=== PATIENT | female | born 1930 | race Caucasian/White ===

== ENCOUNTER → 2016-10-22 | Outpatient (CLI) | payer MEDICARE, BC ==
--- NOTE | 2016-10-22 12:58 | MM ---
Reason for exam: follow-up at short interval from prior study. Last mammogram was performed 10 months ago. History: Patient is postmenopausal and has history of breast cancer at age 85. Family history of breast cancer in mother and breast cancer in aunt. Malignant US breast localization RT of the right breast, January 02, 2016. Malignant US biopsy breast VAD RT of the right breast, December 11, 2015. Radiation therapy of the right breast, 2016. Excisional biopsy of the left breast. Excisional biopsy of the right breast. Took estrogen for 1 year beginning at age 52. Took antineoplastic for 10 years beginning at age 85. Physical Findings: Nurse did not find any significant physical abnormalities on exam. MG 3D Diag Mammo W/Cad JANES Bilateral CC and MLO view(s) were taken. Prior study comparison: December 11, 2015, right breast MG diagnostic mammo RT wo CAD. November 01, 2015, right breast MG 3d work up w/cad RT. November 01, 2015, right breast US breast workup limited RT. October 21, 2014, bilateral MG screening mammo w CAD. There are scattered fibroglandular densities. No significant new findings when compared with previous films. These results were verbally communicated with the patient and result sheet given to the patient on 10/22/16. ASSESSMENT: Benign, BI-RAD 2 RECOMMENDATION: Follow-up diagnostic mammogram of both breasts in 1 year.
== END | disposition home or self-care (01) ==
LOC: RADMAMWWP 10:45
PROVIDERS: ATTEND Radiology Diagnostic Radiology
DX: C50.911 Malignant neoplasm of unspecified site of right female breast (principal)
CPT/HCPCS: G0204; G0279

== ENCOUNTER 2017-06-13 22:01 | Inpatient (IN) | payer MEDICARE, BC ==
--- NOTE | 2017-06-13 22:31 | ED ---
Fall HPI - General Chief Complaint: Fall Stated Complaint: Fall Time Seen by Provider: 06/13/17 22:17 Source: patient, family, RN notes reviewed Mode of arrival: wheelchair - History of Present Illness Initial Comments: This is an 86-year-old female who presents to the emergency department with chief complaint of fall injury. Patient states that she was in her kitchen making dinner at approximately 6 PM this evening. She was in front of the kitchen sink and turned to reach for her microwave when she lost her balance, falling onto her left side. Patient states that she laid there for "about a half a second" and then was able to roll and get up off the ground. She states that she called her son at about 9 PM and requested that he bring her to the emergency department. Patient complains of left hip pain. She states that she is able to ambulate but not well. Patient states that she did not hit her head or lose consciousness. She denies any other injury. Patient states that she is not currently in pain. She only experiences pain when she moves her left lower extremity. Denies fever, chills, chest pain, shortness of breath, abdominal pain, nausea or vomiting, constipation or diarrhea, dysuria or hematuria, numbness or tingling, headache or vision changes. - Related Data Home Medications Medication Instructions Recorded Confirmed Venlafaxine HCl ER [Effexor XR] 75 mg PO DAILY 11/14/13 01/02/16 cycloSPORINE [Restasis] 1 drop BOTH EYES BID 11/14/13 01/02/16 Areds Eye Vitamin 1 tab PO DAILY 12/26/15 12/26/15 Carvedilol [Coreg] 6.25 mg PO BID 12/26/15 01/02/16 Ergocalciferol [Vitamin D2] 50,000 unit PO DIRECTED 12/26/15 12/26/15 Preservision Eye Gtts 1 drop BOTH EYES DIRECTED 12/26/15 01/02/16 Previous Rx's Medication Instructions Recorded HYDROcodone/APAP 5-325MG [[place] 5] 1 - 2 each PO Q6HR PRN #20 tab 01/02/16 Allergies Allergy/AdvReac Type Severity Reaction Status Date / Time cephalexin monohydrate Allergy Unknown Rash/Hives Verified 06/13/17 23:26 [From Keflex] Penicillins Allergy Unknown Verified 06/13/17 23:26 Review of Systems ROS Statement: Those systems with pertinent positive or pertinent negative responses have been documented in the HPI. ROS Other: All systems not noted in ROS Statement are negative. Past Medical History Past Medical History: Hypertension Additional Past Medical History / Comment(s): SOB WITH ACTIVITY, HX SKIN CANCER , PT STATES NEW DIAGNOSIS BREAST CANCER. History of Any Multi-Drug Resistant Organisms: None Reported Past Surgical History: Adenoidectomy, Breast Surgery, Tonsillectomy Additional Past Surgical History / Comment(s): JANES BREAST LUMPS. Past Anesthesia/Blood Transfusion Reactions: No Reported Reaction Past Psychological History: Depression Smoking Status: Never smoker Past Alcohol Use History: None Reported Past Drug Use History: None Reported - Past Family History Mother Family Medical History: Cancer Additional Family Medical History / Comment(s): BREAST CANCER General Exam - General Exam Comments Initial Comments: General: Awake and alert, well-developed; in no apparent distress. Son is at bedside. HEENT: Head atraumatic, normocephalic. Pupils are equal, round and reactive to light. Extraocular movements intact. Oropharynx moist without erythema or exudate. Neck: Supple. Normal ROM. Cardiovascular: Regular rate and rhythm. No murmurs, rubs or gallops. Chest symmetrical. Respiratory: Lungs clear to auscultation bilaterally. No wheezes, rales or rhonchi. Normal respiratory effort with no use of accessory muscles. Musculoskeletal: Patient unable to flex at the hip or knee due to pain of the left hip. No internal rotation noted. Right lower extremity has normal active range of motion. Tenderness on palpation of posterior left pelvis. There is 2 + pitting edema bilateral lower extremities. Sensation is intact. Pedal pulses are 2+ equal and palpable bilaterally. Skin: Nicolaus, warm and dry without rashes or lesions. Neurological: Alert and oriented x3. CN II-XII grossly intact. Speech is fluent and answers are appropriate. No focal neuro deficits. Psychiatric: Normal mood and affect. No overt signs of depression or anxiety noted. Limitations: no limitations Course Vital Signs 06/13/17 22:05 Temperature 97.8 F Pulse Rate 72 Respiratory 20 Rate Blood Pressure 159/71 O2 Sat by Pulse 99 Oximetry Medical Decision Making - Medical Decision Making This is an 86-year-old female who presents to the emergency department with chief complaint of fall injury. Patient fell at approximately 6 PM this evening , landing on her left side. On presentation patient complained of left hip pain. CT of the hip revealed a nondisplaced subcapital fracture of the lateral aspect of the femoral head. Computed tomography scan of brain and C-spine revealed no acute abnormalities. I spoke with Tona, physician assistant district attorney for orthopedics who recommended patient to be admitted under Dr. Raghu Erickson. Patient will be evaluated tomorrow. Patient is in no acute distress at this time. Findings and plan for admission were discussed with patient and her son at bedside. They are in agreement and voices understanding. All questions were answered. - Radiology Data Radiology results: report reviewed X-ray pelvis AP view impression: No fracture seen. X-ray left femur impression: There is slightly irregular cortex of the lateral aspect of the femoral head. On the lateral view however femoral neck appears intact. There is no dislocation. I do not see a definite fracture. CT left hip impression: There is a minimal nondisplaced subcapital fracture of the lateral aspect of the femoral head. 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 The maximum dimension was 2.5 cm. Cerebral atrophy and chronic small vessel ischemia. No acute intracranial abnormality. Neurologic changes in the cervical spine with 7 mm C5 to 6 bony spinal stenosis. No fracture. Disposition Clinical Impression: Fall, Subcapital fracture of left femur Disposition: ADMITTED IP TO THIS [facility] Condition: Stable Referrals: None,Stated [Primary Care Provider] - 1-2 days Time of Disposition: 00:17
--- NOTE | 2017-06-13 23:08 | XR ---
EXAMINATION TYPE: XR femur LT DATE OF EXAM: 06/13/2017 COMPARISON: NONE HISTORY: Hip pain after a fall TECHNIQUE: 6 views FINDINGS: I see no displaced fracture. There is slight irregular cortex on the lateral aspect of the femoral head. Hip joint space is normal. Knee joint is intact. There is no sign of knee joint effusio n. IMPRESSION: There is slight irregular cortex on the lateral aspect of the femoral head. On the lateral view however femoral neck appears intact. There is no Dislocation. I do not see a defi nite fracture..
--- NOTE | 2017-06-13 23:09 | XR ---
EXAMINATION TYPE: XR pelvis AP view DATE OF EXAM: 06/13/2017 COMPARISON: NONE HISTORY: Hip pain TECHNIQUE: Single view FINDINGS: The pelvic ring is intact. Proximal femurs appear intact. Lateral femoral head and neck cor patricia is slightly irregular but the medial cortex appears entirely normal. Sacroiliac joints appear nor mal. There is mild spurring of the acetabula. Hip joint spaces are fairly normal. IMPRESSION: No fracture seen.
--- NOTE | 2017-06-13 23:23 | CT ---
EXAMINATION TYPE: CT brain cspine wo con DATE OF EXAM: 06/13/2017 COMPARISON: MR scan 09/12/2011 HISTORY: Prior brain 2012, no prior CSP, fall today CT DLP: head-1064.30 body-328.10 mGycm Automated exposure control for dose reduction was used. TECHNIQUE: CT scan of the head and cervical spine are performed without contrast. FINDINGS: There is a oval-shaped 3 x 2 cm calcified mass adjacent to the cerebral falx on the right side in the right parietal lobe. There is patchy hypodensity in the periventricular white matter. Th ere is no midline shift. There is no sign of intracranial hemorrhage. The calvarium is intact. There is diffuse cerebral cortical atrophy. There is some straightening of the cervical vertebra. There is moderate narrowing at the C5-6 disc sp dat with spurring of the endplates. Posterior elements are intact. I see no fracture. There is mild h ypertrophic multilevel facet arthropathy. The skull base is intact. There is some narrowing of the sp inal canal at C5-6 that measure 7 mm. 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 The maximum dimension was 2.5 cm. Cerebral atrophy and chronic small vessel ischemia. No acute intracranial abnormality. Spondylotic changes in the cervical spine with 7 mm C5-6 bony spinal stenosis. No fracture.
--- NOTE | 2017-06-13 23:27 | CT ---
EXAMINATION TYPE: CT hip LT wo con DATE OF EXAM: 06/13/2017 COMPARISON: NONE HISTORY: No prior CT left femur xrays done today, evaluate left hip CT DLP: 380.00 mGycm Automated exposure control for dose reduction was used. FINDINGS: There is slight cortical buckling of the cortex of the lateral aspect of the femoral head consistent with a minimal subcapital acute fracture of the femoral head. There is no dislocation. The acetabulum is intact. The medial femoral head cortex appears normal. There is minimal acetabular spurring. The remainder of the exam is unremarkable. IMPRESSION: THERE IS A MINIMAL NONDISPLACED SUBCAPITAL FRACTURE OF THE LATERAL ASPECT OF THE FEMORAL HEAD.
[2017-06-14] MEDS ORDERED: HYDROmorphone 0.5 MG/0.5 ML SYRINGE IVP STA
[2017-06-14] MEDS ORDERED: HYDROmorphone 1 MG/ML 1 ML SYRINGE IVP PRN (00:08)
[2017-06-14] MEDS ORDERED: HYDROmorphone 0.5 MG/0.5 ML SYRINGE IVP PRN ×2 (00:08→00:18)
[2017-06-14] MEDS ORDERED: ACETAMINOPHEN TAB 325 MG TAB PO PRN (00:08)
[2017-06-14] MEDS ORDERED: NALOXONE 0.4 MG/ML 1 ML VIAL IV PRN (00:08)
[2017-06-14 00:32] LABS: Basophils % (A) 0 %; Eosinophils % (A) 0 %; HCT 43.4 % (34.0-46.0); HGB 13.6 gm/dL (11.4-16.0); Lymphocytes # (A) 0.6 k/uL (1.0-4.8); Lymphocytes % (A) 4 %; MCH 30.5 pg (25.0-35.0); MCHC 31.4 g/dL (31.0-37.0); MCV 97.3 fL (80.0-100.0); Mean Platelet Volume 7.5; Monocytes # (A) 0.9 k/uL (0-1.0); Monocytes % (A) 7 %; Neutrophils % (A) 88 %; Platelet Count 347 k/uL (150-450); RBC 4.46 m/uL (3.80-5.40); RDW 13.9 % (11.5-15.5); WBC 13.6 k/uL (3.8-10.6)
[2017-06-14] MEDS: SODIUM CHLORIDE 0.9% 1,000 ML IV SCH ×2 (00:48→16:20)
[2017-06-14 00:49] LABS: ALT 45 U/L (9-52); AST 30 U/L (14-36); Albumin 4.2 g/dL (3.5-5.0); Alkaline Phosphatase 79 U/L (38-126); Anion Gap 11 mmol/L; Blood Urea Nitrogen 29 mg/dL (7-17); Calcium 9.8 mg/dL (8.4-10.2); Carbon Dioxide 24 mmol/L (22-30); Chloride 103 mmol/L (98-107); Glucose 118 mg/dL (74-99); Potassium 4.1 mmol/L (3.5-5.1); Sodium 138 mmol/L (137-145); Total Bilirubin 0.7 mg/dL (0.2-1.3); Total Protein 6.5 g/dL (6.3-8.2)
[2017-06-14] MEDS ORDERED: CARVEDILOL 6.25 MG TAB PO STA (00:55)
[2017-06-14 01:51] VITALS: BMI 21.0
--- NOTE | 2017-06-14 12:01 | MR ---
EXAMINATION TYPE: MR hip LT wo con DATE OF EXAM: 06/14/2017 11:50 AM COMPARISON: NONE HISTORY: Left hip pain TECHNIQUE: Multiplanar, multiecho imaging of the left hip is performed without IV contrast. FINDINGS: There is a 2.5 cm anterior bladder diverticulum. There is a small amount of free fluid with in the pelvis. The uterus and ovaries are not visualized. There is superior joint space loss present in both hips. There is a 1.5 cm area of decreased attenuat ion on the T1 data set in the lateral aspect of the left femoral head. This is not high in signal on T1 weighting. There is no significant joint effusion. There is no evidence of marrow edema. I do not see evidence of avascular necrosis. There is some fraying of the superior acetabular labrum anteriorl y. IMPRESSION: 1. LOW SIGNAL LESION IN THE LATERAL ASPECT OF THE LEFT FEMORAL HEAD MAY REPRESENT A FIBROTIC LESION. A CT SCAN OF THE LEFT HIP WOULD BE SUGGESTED. 2. SMALL AMOUNT OF FREE FLUID WITHIN THE PELVIS. 3. ANTERIOR BLADDER DIVERTICULUM. 4. DEGENERATIVE CHANGE OF BOTH HIPS.
--- NOTE | 2017-06-14 20:23 | NM ---
EXAMINATION TYPE: NM bone/joint limited DATE OF EXAM: 06/14/2017 COMPARISON: Radiograph of the pelvis obtained on June 13, 2017. HISTORY: Left hip pain after a fall 4-5 days ago. Patient breast cancer to 3 years ago. TECHNIQUE: After the intravenous administration of 23.7 mCi Tc 99m MDP. Images acquired 3 hours pos t injection. Multiple views of pelvis are submitted. There is no abnormal uptake within the visualized osseous structures to suggest acute process. Levoco nvex curvature of the lumbar spine is noted. No findings are identified which would suggest a fractur e of the left femur. IMPRESSION: No acute osseous abnormality.
[2017-06-15] MEDS ORDERED: LORazepam 2 MG/ML INJ ONE (03:20)
[2017-06-15] MEDS ORDERED: LORazepam 2 MG/ML INJ IV PRN (03:31)
[2017-06-15] MEDS: SODIUM CHLORIDE 0.9% 1,000 ML IV SCH ×2 (04:03→16:36)
--- NOTE | 2017-06-15 08:01 | P.HPOR ---
History of Present Illness H&P Date: 06/14/17 This is an 86-year-old female who is admitted for left hip pain. Patient was evaluated in the the emergency room on 06/13/2017 after a fall. Patient states she fell in her kitchen and was able to walk but this was difficult and painful. Patient states today she still has pain in the left hip with any movement of the left lower extremity. Patient states she has not been out of bed today. Patient denies head injury, loss of consciousness, radicular pain, numbness, weakness or tingling. Review of Systems See HPI. Past Medical History Past Medical History: Hypertension Additional Past Medical History / Comment(s): SOB WITH ACTIVITY, HX SKIN CANCER , PT STATES NEW DIAGNOSIS BREAST CANCER. History of Any Multi-Drug Resistant Organisms: None Reported Past Surgical History: Adenoidectomy, Breast Surgery, Tonsillectomy Additional Past Surgical History / Comment(s): JANES BREAST LUMPS. Past Anesthesia/Blood Transfusion Reactions: No Reported Reaction Past Psychological History: Depression Smoking Status: Never smoker Past Alcohol Use History: None Reported Past Drug Use History: None Reported - Past Family History Mother Family Medical History: Cancer Additional Family Medical History / Comment(s): BREAST CANCER Medications and Allergies Home Medications Medication Instructions Recorded Confirmed Type Venlafaxine HCl ER [Effexor XR] 75 mg PO DAILY 11/14/13 01/02/16 History cycloSPORINE [Restasis] 1 drop BOTH EYES BID 11/14/13 01/02/16 History Areds Eye Vitamin 1 tab PO DAILY 12/26/15 12/26/15 History Carvedilol [Coreg] 6.25 mg PO BID 12/26/15 01/02/16 History Ergocalciferol [Vitamin D2] 50,000 unit PO DIRECTED 12/26/15 12/26/15 History Preservision Eye Gtts 1 drop BOTH EYES DIRECTED 12/26/15 01/02/16 History HYDROcodone/APAP 5-325MG [[place] 5] 1 - 2 each PO Q6HR PRN #20 tab 01/02/16 Rx Allergies Allergy/AdvReac Type Severity Reaction Status Date / Time cephalexin monohydrate Allergy Unknown Rash/Hives Verified 06/13/17 23:26 [From Keflex] Penicillins Allergy Unknown Verified 06/13/17 23:26 Physical Examination On exam patient is alert and oriented 3. Patient is hard of hearing. Patient is in no acute distress. Skin is intact. There is no ecchymosis, swelling or erythema. There is tenderness to palpation over the left hip. Patient has pain in the left hip with log roll and flexion and extension of the left hip. Patient has limited range of motion of the left lower extremity due to pain. There is no deformity of the left lower extremity. There is no tenderness over the left knee, ankle or foot. Calf is soft and nontender. Neurovascular status and circulatory status are intact. There is no tenderness to palpation of the head, neck, bilateral upper extremities or right lower extremity. Results A CT of the left hip without contrast shows evidence for a minimal nondisplaced subcapital fracture of the lateral aspect of the femoral head. X-ray of the left femur no definite acute fracture dislocation. X-rays of the pelvis shows no acute fracture or dislocation. - Labs Labs: Abnormal Lab Results - Last 24 Hours (Table) 06/14/17 06/14/17 Range/Units 00:15 00:15 WBC 13.6 H (3.8-10.6) k/uL Neutrophils # 12.0 H (1.3-7.7) k/uL Lymphocytes # 0.6 L (1.0-4.8) k/uL BUN 29 H (7-17) mg/dL Glucose 118 H (74-99) mg/dL H & H 06/14/17 Range/Units 00:15 Hgb 13.6 (11.4-16.0) gm/dL Hct 43.4 (34.0-46.0) % Result Diagrams: 06/14/17 00:15 06/14/17 00:15 Assessment and Plan (1) Fall Current Visit: Yes Status: Acute Code(s): W19.XXXA - UNSPECIFIED FALL, INITIAL ENCOUNTER SNOMED Code(s): 3070337 (2) Left hip pain Current Visit: Yes Status: Acute Code(s): M25.552 - PAIN IN LEFT HIP SNOMED Code(s): 79779079 Plan: #1. MRI of the left hip is ordered. #2. Patient is to be nonweightbearing to the left lower extremity. #3. Continue pain control. #4. No surgical intervention planned at this time. Further recommendations following MRI results.
--- NOTE | 2017-06-15 08:13 | P.PN ---
Subjective Progress Note Date: 06/15/17 This is an 86-year-old female admitted for left hip pain after fall. Patient has a history of dementia and is combative and upset this morning. Patient states her left hip does not hurt. Patient denies any new complaints today. Objective - Vital Signs Vital signs: Vital Signs Temp 98.0 F 06/14/17 23:00 Pulse 62 06/14/17 23:00 Resp 16 06/14/17 23:00 BP 121/82 06/14/17 23:00 Pulse Ox 94 L 06/14/17 23:00 Intake & Output 06/14/17 06/15/17 06/15/17 18:59 06:59 18:59 Intake Total 1470 600 Balance 1470 600 Intake: Intake, IV Titration 750 600 Amount Sodium Chloride 0.9% 1, 750 600 000 ml @ 75 mls/hr IV . [id number] CHRISTOPHER Rx#:[id number] Oral 720 Other: # Voids 2 3 - Exam On exam patient is alert and in no acute distress. Patient is laying on the left side without any pain. Calf is soft and nontender to palpation. Neurovascular status and circulatory status are intact today. - Labs CBC & Chem 7: 06/14/17 00:15 06/14/17 00:15 Assessment and Plan (1) Fall Current Visit: Yes Status: Acute Code(s): W19.XXXA - UNSPECIFIED FALL, INITIAL ENCOUNTER SNOMED Code(s): 0020172 (2) Left hip pain Current Visit: Yes Status: Acute Code(s): M25.552 - PAIN IN LEFT HIP SNOMED Code(s): 97929186 (3) Contusion of left hip Current Visit: Yes Status: Acute Code(s): S70.02XA - CONTUSION OF LEFT HIP, INITIAL ENCOUNTER SNOMED Code(s): 20434795 Plan: #1. A bone scan is ordered of the left hip for further evaluation and is negative for any acute osseous abnormality, #2. Patient is to be weightbearing as tolerated to the right lower extremity with physical therapy. #3. Continue pain control. #4. No surgical intervention planned at this time.
[2017-06-15] MEDS: ENOXAPARIN 40 MG/0.4 ML SYRINGE SQ SCH ×2 (09:44→11:09)
[2017-06-15] MEDS ORDERED: DOXYCYCLINE 50 MG CAP PO SCH (12:00)
[2017-06-15] MEDS ORDERED: DOXYCYCLINE 100 MG CAP PO SCH (12:55)
[2017-06-15] MEDS: DOXYCYCLINE 100 MG PO SCH ×2 (13:02→20:49)
[2017-06-15] MEDS: SILVER SULFADIAZINE 1% TOPICAL SCH ×2 (13:10→20:49)
[2017-06-15 14:48] LABS: Basophils % (A) 0 %; Eosinophils % (A) 0 %; HCT 39.4 % (34.0-46.0); HGB 12.4 gm/dL (11.4-16.0); Lymphocytes # (A) 0.5 k/uL (1.0-4.8); Lymphocytes % (A) 6 %; MCH 30.7 pg (25.0-35.0); MCHC 31.4 g/dL (31.0-37.0); MCV 97.8 fL (80.0-100.0); Mean Platelet Volume 7.7; Monocytes # (A) 0.6 k/uL (0-1.0); Monocytes % (A) 7 %; Neutrophils # (A) 8.3 k/uL (1.3-7.7); Neutrophils % (A) 86 %; Platelet Count 270 k/uL (150-450); RBC 4.03 m/uL (3.80-5.40); RDW 13.8 % (11.5-15.5); WBC 9.6 k/uL (3.8-10.6)
[2017-06-15 15:04] LABS: Anion Gap 8 mmol/L; Blood Urea Nitrogen 23 mg/dL (7-17); Calcium 8.7 mg/dL (8.4-10.2); Carbon Dioxide 24 mmol/L (22-30); Chloride 108 mmol/L (98-107); Glucose 126 mg/dL (74-99); Sodium 140 mmol/L (137-145)
[2017-06-16] MEDS: SODIUM CHLORIDE 0.9% 1,000 ML IV SCH ×2 (09:03→22:46)
[2017-06-16] MEDS: ENOXAPARIN 40 MG/0.4 ML SYRINGE SQ SCH (09:11)
[2017-06-16] MEDS: DOXYCYCLINE 100 MG PO SCH ×2 (09:11→19:36)
[2017-06-16] MEDS: SILVER SULFADIAZINE 1% TOPICAL SCH ×2 (10:17→19:37)
--- NOTE | 2017-06-16 10:34 | P.PN ---
Subjective Progress Note Date: 06/16/17 This is an 86-year-old female admitted for left hip pain after fall. Patient has a history of dementia and resting comfortably this morning. Patient denies any new complaints today. Objective - Vital Signs Vital signs: Vital Signs Temp 97.7 F 06/15/17 15:00 Pulse 74 06/16/17 07:00 Resp 16 06/16/17 07:00 BP 136/80 06/16/17 07:00 Pulse Ox 98 06/16/17 07:00 Intake & Output 06/15/17 06/16/17 06/16/17 18:59 06:59 18:59 Intake Total 1080 240 Balance 1080 240 Intake: Oral 1080 240 Other: Voiding Method Incontinent Toilet # Voids 1 - Exam On exam patient is resting comfortably in bed and in no acute distress. There is no tenderness to palpation over the left hip. Calf is soft and nontender to palpation. Neurovascular status and circulatory status are intact. - Labs CBC & Chem 7: 06/15/17 14:32 06/15/17 14:32 Labs: Abnormal Lab Results - Last 24 Hours (Table) 06/15/17 06/15/17 Range/Units 14:32 14:32 Neutrophils # 8.3 H (1.3-7.7) k/uL Lymphocytes # 0.5 L (1.0-4.8) k/uL Chloride 108 H (98-107) mmol/L BUN 23 H (7-17) mg/dL Glucose 126 H (74-99) mg/dL Assessment and Plan (1) Fall Current Visit: Yes Status: Acute Code(s): W19.XXXA - UNSPECIFIED FALL, INITIAL ENCOUNTER SNOMED Code(s): 3972627 (2) Left hip pain Current Visit: Yes Status: Acute Code(s): M25.552 - PAIN IN LEFT HIP SNOMED Code(s): 34755378 (3) Contusion of left hip Current Visit: Yes Status: Acute Code(s): S70.02XA - CONTUSION OF LEFT HIP, INITIAL ENCOUNTER SNOMED Code(s): 68364790 Plan: #1. A bone scan is negative for left hip fracture. #2. Patient is to be weight bearing as tolerated to the right lower extremity with physical therapy. #3. Continue pain control and DVT prophylaxis with Lovenox. #4. Appreciate input from medicine. #5. Patient may need discharge to a rehab facility. Case management is consulted.
[2017-06-16] MEDS ORDERED: KETOROLAC 30 MG/ML 1 ML VIAL IVP PRN (10:40)
[2017-06-16] MEDS ORDERED: DOXYCYCLINE MONOHYDRATE 100 MG PO SCH (10:45)
--- NOTE | 2017-06-16 11:07 | P.CONS ---
History of Present Illness - Reason for Consult Medical clearance for discharge, altered mental status - History of Present Illness Patient is a very pleasant 86-year-old female possibility of either vascular or senile dementia admitted for the possibility of left hip fracture to arthritic serviceman's was consulted regarding her confusion. Patient is presently alert oriented times close to 2-3 but patient get frequent agitation episodes. Patient was evaluated by arthritic surgery and was admitted to orthopedic surgery to rule out fraction of the left hip there is no clear-cut evidence of left hip fracture because of which patient underwent bone scan which did not show any fracture either although patient is quite weak and had a mechanical fall because of which will need to be placed in subacute rehabilitation and case management and social work is working on this. Patient was on Dilaudid and Ativan await the made her confusion worse secondary to toxic encephalopathy these will be disc in your patient will be started on ketorolac and Pepcid if patient is being discharged he can use etodolac and Tylenol for pain along with Pepcid for GI prophylaxis. DVT prophylaxis as per primary service. Review of Systems REVIEW OF SYSTEMS: CONSTITUTIONAL: No fever, no malaise, no fatigue. HEENT: No recent visual problems or hearing problems. Denied any sore throat. CARDIOVASCULAR: No chest pain, orthopnea, PND, no palpitations, no syncope. PULMONARY: No shortness of breath, no cough, no hemoptysis. GASTROINTESTINAL: No diarrhea, no nausea, no vomiting, no abdominal pain. Normoactive bowel sounds. NEUROLOGICAL: No headaches, no weakness, no numbness. HEMATOLOGICAL: Denies any bleeding or petechiae. GENITOURINARY: Denies any burning micturition, frequency, or urgency. MUSCULOSKELETAL/RHEUMATOLOGICAL: He pain as mentioned above ENDOCRINE: Denies any polyuria or polydipsia. The rest of the 14-point review of systems is negative. Past Medical History Past Medical History: Hypertension Additional Past Medical History / Comment(s): SOB WITH ACTIVITY, HX SKIN CANCER , PT STATES NEW DIAGNOSIS BREAST CANCER. History of Any Multi-Drug Resistant Organisms: None Reported Past Surgical History: Adenoidectomy, Breast Surgery, Tonsillectomy Additional Past Surgical History / Comment(s): JANES BREAST LUMPS. Past Anesthesia/Blood Transfusion Reactions: No Reported Reaction Past Psychological History: Depression Smoking Status: Never smoker Past Alcohol Use History: None Reported Past Drug Use History: None Reported - Past Family History Mother Family Medical History: Cancer Additional Family Medical History / Comment(s): BREAST CANCER Medications and Allergies Home Medications Medication Instructions Recorded Confirmed Type Venlafaxine HCl ER [Effexor XR] 75 mg PO DAILY 11/14/13 06/14/17 History cycloSPORINE [Restasis] 1 drop BOTH EYES BID 11/14/13 06/14/17 History Carvedilol [Coreg] 6.25 mg PO BID 12/26/15 06/14/17 History Anastrozole [Arimidex] 1 mg PO DAILY 06/14/17 06/14/17 History Doxycycline Monohydrate [Monodox] 100 mg PO Q12H 06/14/17 06/14/17 History SILVER sulfADIAZINE CREAM 1 applic TOPICAL BID 06/14/17 06/14/17 History [Silvadene Cream] Acetaminophen [Acetaminophen ER] 650 mg PO Q4HR #2 tablet.er 06/16/17 Rx Etodolac [Lodine] 200 mg PO BID #20 capsule 06/16/17 Rx Famotidine [Pepcid] 20 mg PO BID #0 tab 06/16/17 Rx Allergies Allergy/AdvReac Type Severity Reaction Status Date / Time cephalexin monohydrate Allergy Unknown Rash/Hives Verified 06/13/17 23:26 [From Keflex] Penicillins Allergy Unknown Verified 06/13/17 23:26 Physical Exam Vitals: Vital Signs Temp Pulse Resp BP Pulse Ox 06/16/17 09:13 98.4 F 06/16/17 07:00 74 16 136/80 98 06/16/17 03:11 83 16 147/72 94 L 06/15/17 20:00 16 06/15/17 15:00 97.7 F 93 16 176/73 99 Intake and Output 06/15/17 06/16/17 06/16/17 22:59 06:59 14:59 Intake Total 240 400 Balance 240 400 Intake: Oral 240 400 Other: Voiding Method Toilet Toilet # Voids 1 1 PHYSICAL EXAMINATION: GENERAL: The patient is alert and oriented x3, not in any acute distress. Well developed, well nourished. HEENT: Pupils are round and equally reacting to light. EOMI. No scleral icterus. No conjunctival pallor. Normocephalic, atraumatic. No pharyngeal erythema. No thyromegaly. CARDIOVASCULAR: S1 and S2 present. No murmurs, rubs, or gallops. PULMONARY: Chest is clear to auscultation, no wheezing or crackles. ABDOMEN: Soft, nontender, nondistended, normoactive bowel sounds. No palpable organomegaly. MUSCULOSKELETAL: No joint swelling or deformity. EXTREMITIES: Deferred to orthopedic surgery NEUROLOGICAL: Gross neurological examination did not reveal any focal deficits. SKIN: No rashes. Results CBC & Chem 7: 06/15/17 14:32 06/15/17 14:32 Labs: Abnormal Lab Results - Last 24 Hours (Table) 06/15/17 06/15/17 Range/Units 14:32 14:32 Neutrophils # 8.3 H (1.3-7.7) k/uL Lymphocytes # 0.5 L (1.0-4.8) k/uL Chloride 108 H (98-107) mmol/L BUN 23 H (7-17) mg/dL Glucose 126 H (74-99) mg/dL Assessment and Plan Plan: -Altered mental status:: Secondary to toxic encephalopathy from medications which will be discontinued Ativan and hydromorphone will be discontinued will instead we will use nonsteroidal anti-inflammatories for pain patient kidney function is okay. -Patient has bilateral breast lumps in the past because of which patient is anastrozole which can be continued. -Hypertension -Generalized deconditioning, mechanical fall and hip pain management as per primary service patient will be discharged to subacute rehabilitation Patient can be discharged from medical perspective and as per it's appropriate from orthopedic perspective
[2017-06-16] MEDS: cycloSPORINE 0.05% OPHTH 0.4 ML DROPERETTE BOTH EYES SCH (19:36)
[2017-06-16] MEDS: CARVEDILOL 6.25 MG TAB PO SCH (19:37)
[2017-06-16] MEDS ORDERED: FAMOTIDINE 20 MG TAB PO SCH (21:00)
[2017-06-17] MEDS ORDERED: FAMOTIDINE 20 MG TAB PO SCH (09:00)
[2017-06-17] MEDS ORDERED: ANASTROZOLE 1 MG TAB PO SCH (09:00)
[2017-06-17] MEDS ORDERED: VENLAFAXINE HCL ER 75 MG CAP PO SCH (09:00)
[2017-06-17] MEDS: CARVEDILOL 6.25 MG TAB PO SCH (09:29)
[2017-06-17] MEDS: DOXYCYCLINE 100 MG PO SCH (09:32)
[2017-06-17] MEDS: cycloSPORINE 0.05% OPHTH 0.4 ML DROPERETTE BOTH EYES SCH (09:33)
[2017-06-17] MEDS: ENOXAPARIN 40 MG/0.4 ML SYRINGE SQ SCH (09:33)
[2017-06-17] MEDS: SILVER SULFADIAZINE 1% TOPICAL SCH ×2 (09:38→10:25)
[2017-06-17] MEDS: SODIUM CHLORIDE 0.9% 1,000 ML IV SCH (10:25)
--- NOTE | 2017-06-17 14:35 | XR ---
EXAMINATION TYPE: XR chest 1V portable DATE OF EXAM: 06/17/2017 COMPARISON: NONE HISTORY: Shortness of breath TECHNIQUE: Frontal and lateral views of the chest are obtained. FINDINGS: Scattered senescent parenchymal changes noted. Hyperinflation compatible with COPD. No evidence for infiltrate. No evidence for atelectasis. Heart size is stable. Mediastinal structures are stable and grossly unremarkable. No evidence for hilar prominence. Degenerative changes dorsal spine. IMPRESSION: 1. No evidence for acute pulmonary disease.
[2017-06-17 14:55] VITALS: BP 142/84; PULSE 94; RESP 15; TEMP 98
--- NOTE | 2017-06-17 15:36 | P.DS ---
Providers Date of admission: 06/14/17 00:17 Expected date of discharge: 06/17/17 Attending physician: Raghu Erickson Consults: 06/17/17 12:19 Consult Physician Routine Consulting Provider: Rachna South Consult Reason/Comments: medical management Do you want consulting provider notified?: Yes Primary care physician: Stated None - Discharge Diagnosis(es) (1) Fall Current Visit: Yes Status: Acute (2) Left hip pain Current Visit: Yes Status: Acute (3) Contusion of left hip Current Visit: Yes Status: Acute Hospital Course: This is a 86-year-old female who sustained a contusion of the left hip after a fall. The patient presents for evaluation. The patient was admitted after CT scan showed evidence for possible fracture of the left hip. A bone scan of the left hip was done and was negative for any fracture of the left hip. Patient has been up and walking with physical therapy. Patient has a history of dementia. Labs and vital signs are stable on day of discharge. On day of discharge patient has no tenderness to palpation over the left hip. Patient has full range of motion of the left lower extremity without pain or difficulty. There is no swelling, erythema or ecchymosis. Patient has full foot and ankle motion without difficulty or pain. Neurovascular status to the left lower extremity is intact. Patient is discharged to rehab in good condition. Please see med rec for accurate list of home medications. Patient Condition at Discharge: Stable Plan - Discharge Summary New Discharge Prescriptions: New Acetaminophen [Acetaminophen ER] 650 mg PO Q4HR #2 tablet.er Etodolac [Lodine] 200 mg PO BID #20 capsule Famotidine [Pepcid] 20 mg PO BID #0 tab Continue Venlafaxine HCl ER [Effexor XR] 75 mg PO DAILY cycloSPORINE [Restasis] 1 drop BOTH EYES BID Carvedilol [Coreg] 6.25 mg PO BID SILVER sulfADIAZINE CREAM [Silvadene Cream] 1 applic TOPICAL BID Anastrozole [Arimidex] 1 mg PO DAILY Doxycycline Monohydrate [Monodox] 100 mg PO Q12H Discharge Medication List Venlafaxine HCl ER [Effexor XR] 75 mg PO DAILY 11/14/13 [History] cycloSPORINE [Restasis] 1 drop BOTH EYES BID 11/14/13 [History] Carvedilol [Coreg] 6.25 mg PO BID 12/26/15 [History] Anastrozole [Arimidex] 1 mg PO DAILY 06/14/17 [History] Doxycycline Monohydrate [Monodox] 100 mg PO Q12H 06/14/17 [History] SILVER sulfADIAZINE CREAM [Silvadene Cream] 1 applic TOPICAL BID 06/14/17 [ History] Acetaminophen [Acetaminophen ER] 650 mg PO Q4HR #2 tablet.er 06/16/17 [Rx] Etodolac [Lodine] 200 mg PO BID #20 capsule 06/16/17 [Rx] Famotidine [Pepcid] 20 mg PO BID #0 tab 06/16/17 [Rx] Follow up Appointment(s)/Referral(s): Claude Ordonez MD [STAFF PHYSICIAN] - 3 Days (while at [facility]) Trav on the [place], [NON-STAFF] - As Needed Raghu Erickson DO [Doctor of Osteopathic Medicine] - As Needed Activity/Diet/Wound Care/Special Instructions: Weightbearing as tolerated to the left lower extremity. Rest and ice the left lower extremity as needed. Patient may follow-up with [facility] on an as-needed basis. Any questions or concerns, Discharge Disposition: TRANSFER TO SNF/ECF
== END 2017-06-17 16:42 | DRG 604 ==
LOC: EC 22:01 → 3SUR 06-14 00:17
PROVIDERS: ADMIT Orthopaedic Surgery; ATTEND Orthopaedic Surgery
DX: S70.02XA Contusion of left hip, initial encounter (principal); G92 Toxic encephalopathy; F03.90 Unspecified dementia, unspecified severity, without behavioral disturbance, psychotic disturbance, mood disturbance, and anxiety; F32.9 Major depressive disorder, single episode, unspecified; T40.2X5A Adverse effect of other opioids, initial encounter; T42.4X5A Adverse effect of benzodiazepines, initial encounter; I10 Essential (primary) hypertension; Z79.811 Long term (current) use of aromatase inhibitors; Z79.899 Other long term (current) drug therapy; Z85.3 Personal history of malignant neoplasm of breast; Z88.1 Allergy status to other antibiotic agents; Z88.0 Allergy status to penicillin; Z85.828 Personal history of other malignant neoplasm of skin; W01.0XXA Fall on same level from slipping, tripping and stumbling without subsequent striking against object, initial encounter; Y92.000 Kitchen of unspecified non-institutional (private) residence as the place of occurrence of the external cause
CPT/HCPCS: 36415; 70450; 71045; 72125; 72170; 78300; 80048; 80053; 85025; 96374; 99285

== ENCOUNTER → 2017-10-30 | Outpatient (CLI) | payer MEDICARE, BC ==
--- NOTE | 2017-10-30 15:10 | MM ---
Reason for exam: additional evaluation requested from prior study. Last mammogram was performed 1 year ago. History: Patient is postmenopausal and has history of breast cancer at age 85. Family history of breast cancer in mother and breast cancer in aunt. Malignant US breast localization RT of the right breast, January 02, 2016. Malignant US biopsy breast VAD RT of the right breast, December 11, 2015. Radiation therapy of the right breast, 2016. Excisional biopsy of the left breast. Excisional biopsy of the right breast. Took estrogen for 1 year beginning at age 52. Took antineoplastic for 10 years beginning at age 85. Physical Findings: Nurse did not find any significant physical abnormalities on exam. MG 3D Diag Mammo W/Cad JANES Bilateral CC and MLO view(s) were taken. Prior study comparison: October 22, 2016, bilateral MG 3d diag mammo w/cad JANES. December 11, 2015, right breast MG diagnostic mammo RT wo CAD. The breast tissue is heterogeneously dense. This may lower the sensitivity of mammography. No suspicious abnormality. Post therapy change on the right breast. No significant new findings when compared with previous films. These results were verbally communicated with the patient and result sheet given to the patient on 10/30/17. ASSESSMENT: Benign, BI-RAD 2 RECOMMENDATION: Follow-up diagnostic mammogram of both breasts in 1 year.
== END | disposition home or self-care (01) ==
LOC: RADMAMWWP 14:01
PROVIDERS: ATTEND Radiology Diagnostic Radiology
DX: Z12.31 Encounter for screening mammogram for malignant neoplasm of breast (principal); Z85.3 Personal history of malignant neoplasm of breast
CPT/HCPCS: 77066; G0279; 77062

== ENCOUNTER 2017-12-07 13:25 | Emergency (ER) | payer MEDICARE, BC ==
[2017-12-07 13:42] VITALS: RESP 18
--- NOTE | 2017-12-07 14:11 | ED ---
General Adult HPI - General Chief complaint: Arrhythmia/Palpitations Stated complaint: Palpatations Time Seen by Provider: 12/07/17 13:30 Source: patient, family, RN notes reviewed Mode of arrival: wheelchair Limitations: no limitations - History of Present Illness Initial comments: This is an 87-year-old female presents emergency department stating she was having palpitations in her heart today. Patient states since she's been emergency department she has not had any. Patient states she doesn't think she was short of breath when she was having the palpitations. Patient denies having any chest pain. Patient denies any history of similar symptoms. Patient denies any recent fever chills or cough. Patient denies lightheadedness or dizziness. Patient denies any near syncopal episode. Patient denies any abdominal pain. Patient denies any nausea vomiting diarrhea. Patient states the symptoms have been coming and going all week but today with there were little more significant. - Related Data Home Medications Medication Instructions Recorded Confirmed Venlafaxine HCl ER [Effexor XR] 75 mg PO DAILY 11/14/13 12/07/17 cycloSPORINE [Restasis] 1 drop BOTH EYES BID 11/14/13 12/07/17 Carvedilol [Coreg] 6.25 mg PO BID 12/26/15 12/07/17 Anastrozole [Arimidex] 1 mg PO DAILY 06/14/17 12/07/17 Allergies Allergy/AdvReac Type Severity Reaction Status Date / Time cephalexin monohydrate Allergy Unknown Rash/Hives Verified 12/07/17 14:22 [From Keflex] Penicillins Allergy Unknown Verified 12/07/17 14:22 Review of Systems ROS Statement: Those systems with pertinent positive or pertinent negative responses have been documented in the HPI. ROS Other: All systems not noted in ROS Statement are negative. Past Medical History Past Medical History: Hypertension Additional Past Medical History / Comment(s): SOB WITH ACTIVITY, HX SKIN CANCER , PT STATES NEW DIAGNOSIS BREAST CANCER. History of Any Multi-Drug Resistant Organisms: None Reported Past Surgical History: Adenoidectomy, Breast Surgery, Tonsillectomy Additional Past Surgical History / Comment(s): JANES BREAST LUMPS. Past Anesthesia/Blood Transfusion Reactions: No Reported Reaction Past Psychological History: Depression Smoking Status: Never smoker Past Alcohol Use History: None Reported Past Drug Use History: None Reported - Past Family History Mother Family Medical History: Cancer Additional Family Medical History / Comment(s): BREAST CANCER General Exam - General Exam Comments Initial Comments: GENERAL: Patient is well-developed and well-nourished. Patient is nontoxic and well- hydrated and is in no acute distress. ENT: Neck is soft and supple. No significant lymphadenopathy is noted. Oropharynx is clear. Moist mucous membranes. Neck has full range of motion without eliciting any pain. EYES: The sclera were anicteric and conjunctiva were pink and moist. Extraocular movements were intact and pupils were equal round and reactive to light. Eyelids were unremarkable. PULMONARY: Unlabored respirations. Good breath sounds bilaterally. No audible rales rhonchi or wheezing was noted. CARDIOVASCULAR: There is a regular rate and rhythm without any murmurs gallops or rubs. ABDOMEN: Soft and nontender with normal bowel sounds. No palpable organomegaly was noted. There is no palpable pulsatile mass. SKIN: Skin is clear with no lesions or rashes and otherwise unremarkable. NEUROLOGIC: Patient is alert and oriented x3. Cranial nerves II through XII are grossly intact. Motor and sensory are also intact. Normal speech, volume and content. Symmetrical smile. MUSCULOSKELETAL: Normal extremities with adequate strength and full range of motion. No lower extremity swelling or edema. No calf tenderness. LYMPHATICS: No significant lymphadenopathy is noted PSYCHIATRIC: Normal psychiatric evaluation. Normal interpersonal interactions appears functionally intact in deals appropriately with others. No signs of depression. No signs of anxiety. 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 Patient's chest x-ray showed no acute abnormality. Patient had no palpitations while in the emergency department. Patient had no symptoms at all and wanted to go home once all the lab work was back. Patient states she'll follow-up with Dr. Llamas tomorrow - Lab Data Result diagrams: 12/07/17 13:48 12/07/17 13:48 Lab Results 07/01/1712/07/17 12/07/17 Range/Units 13:48 13:48 13:48 WBC 7.0 (3.8-10.6) k/uL RBC 4.46 (3.80-5.40) m/uL Hgb 14.2 (11.4-16.0) gm/dL Hct 42.4 (34.0-46.0) % MCV 95.1 (80.0-100.0) fL MCH 31.8 (25.0-35.0) pg MCHC 33.4 (31.0-37.0) g/dL RDW 13.7 (11.5-15.5) % Plt Count 387 (150-450) k/uL Neutrophils % 68 % Lymphocytes % 21 % Monocytes % 9 % Eosinophils % 1 % Basophils % 0 % Neutrophils # 4.8 (1.3-7.7) k/uL Lymphocytes # 1.4 (1.0-4.8) k/uL Monocytes # 0.6 (0-1.0) k/uL Eosinophils # 0.0 (0-0.7) k/uL Basophils # 0.0 (0-0.2) k/uL PT (9.0-12.0) sec INR (<1.2) APTT (22.0-30.0) sec Sodium 139 (137-145) mmol/L Potassium 4.4 (3.5-5.1) mmol/L Chloride 106 (98-107) mmol/L Carbon Dioxide 22 (22-30) mmol/L Anion Gap 11 mmol/L BUN 26 H (7-17) mg/dL Creatinine 0.80 (0.52-1.04) mg/dL Est GFR (CKD-EPI)AfAm 76 (>60 ml/min/1.73 sqM) Est GFR (CKD-EPI)NonAf 66 (>60 ml/min/1.73 sqM) Glucose 99 (74-99) mg/dL Calcium 9.7 (8.4-10.2) mg/dL Magnesium 2.1 (1.6-2.3) mg/dL Total Bilirubin 0.7 (0.2-1.3) mg/dL AST 25 (14-36) U/L ALT 32 (9-52) U/L Alkaline Phosphatase 65 (38-126) U/L Total Creatine Kinase 45 (30-135) U/L CK-MB (CK-2) 1.3 (0.0-2.4) ng/mL CK-MB (CK-2) Rel Index 2.9 Troponin I <0.012 (0.000-0.034) ng/mL Total Protein 6.5 (6.3-8.2) g/dL Albumin 4.2 (3.5-5.0) g/dL TSH 3.760 (0.465-4.680) mIU/L Free T4 1.26 (0.78-2.19) ng/dL 12/07/17 Range/Units 13:48 WBC (3.8-10.6) k/uL RBC (3.80-5.40) m/uL Hgb (11.4-16.0) gm/dL Hct (34.0-46.0) % MCV (80.0-100.0) fL MCH (25.0-35.0) pg MCHC (31.0-37.0) g/dL RDW (11.5-15.5) % Plt Count (150-450) k/uL Neutrophils % % Lymphocytes % % Monocytes % % Eosinophils % % Basophils % % Neutrophils # (1.3-7.7) k/uL Lymphocytes # (1.0-4.8) k/uL Monocytes # (0-1.0) k/uL Eosinophils # (0-0.7) k/uL Basophils # (0-0.2) k/uL PT 9.8 (9.0-12.0) sec INR 1.0 (<1.2) APTT 21.6 L (22.0-30.0) sec Sodium (137-145) mmol/L Potassium (3.5-5.1) mmol/L Chloride (98-107) mmol/L Carbon Dioxide (22-30) mmol/L Anion Gap mmol/L BUN (7-17) mg/dL Creatinine (0.52-1.04) mg/dL Est GFR (CKD-EPI)AfAm (>60 ml/min/1.73 sqM) Est GFR (CKD-EPI)NonAf (>60 ml/min/1.73 sqM) Glucose (74-99) mg/dL Calcium (8.4-10.2) mg/dL Magnesium (1.6-2.3) mg/dL Total Bilirubin (0.2-1.3) mg/dL AST (14-36) U/L ALT (9-52) U/L Alkaline Phosphatase (38-126) U/L Total Creatine Kinase (30-135) U/L CK-MB (CK-2) (0.0-2.4) ng/mL CK-MB (CK-2) Rel Index Troponin I (0.000-0.034) ng/mL Total Protein (6.3-8.2) g/dL Albumin (3.5-5.0) g/dL TSH (0.465-4.680) mIU/L Free T4 (0.78-2.19) ng/dL Disposition Clinical Impression: Palpitations Disposition: HOME SELF-CARE Condition: Good Instructions: Palpitations (ED) Is patient prescribed a controlled substance at d/c from ED?: No Referrals: None,Stated [REFERRING] - 1-2 days Time of Disposition: 15:10
[2017-12-07] MEDS ORDERED: LORazepam 2 MG/ML INJ IV STA (14:12)
[2017-12-07 14:17] LABS: Basophils % (A) 0 %; Eosinophils % (A) 1 %; HCT 42.4 % (34.0-46.0); HGB 14.2 gm/dL (11.4-16.0); Lymphocytes # (A) 1.4 k/uL (1.0-4.8); Lymphocytes % (A) 21 %; MCH 31.8 pg (25.0-35.0); MCHC 33.4 g/dL (31.0-37.0); MCV 95.1 fL (80.0-100.0); Mean Platelet Volume 6.6; Monocytes # (A) 0.6 k/uL (0-1.0); Monocytes % (A) 9 %; Neutrophils # (A) 4.8 k/uL (1.3-7.7); Neutrophils % (A) 68 %; Platelet Count 387 k/uL (150-450); RBC 4.46 m/uL (3.80-5.40); RDW 13.7 % (11.5-15.5)
[2017-12-07 14:26] LABS: Albumin 4.2 g/dL (3.5-5.0); Calcium 9.7 mg/dL (8.4-10.2); Magnesium 2.1 mg/dL (1.6-2.3); Potassium 4.4 mmol/L (3.5-5.1); Total Bilirubin 0.7 mg/dL (0.2-1.3); Total Protein 6.5 g/dL (6.3-8.2)
[2017-12-07 14:34] LABS: Prothrombin Time 9.8 sec (9.0-12.0)
[2017-12-07 14:36] LABS: Creatine Kinase 45 U/L (30-135)
[2017-12-07 14:42] LABS: T4, Free (Free Thyroxine) 1.26 ng/dL (0.78-2.19)
[2017-12-07 14:43] LABS: Partial Thromboplastin Time 21.6 sec (22.0-30.0)
--- NOTE | 2017-12-07 14:44 | XR ---
EXAMINATION TYPE: XR chest 2V DATE OF EXAM: 12/07/2017 COMPARISON: 06/17/2017 and 05/07/2017 HISTORY: 87-year-old female with dysrhythmia, shortness of breath TECHNIQUE: PA and lateral views FINDINGS: S-shaped scoliosis. Patient is decentered. Heart normal size. Atherosclerotic arch calcifications. H yperinflation with mild diffuse interstitial prominence as a chronic appearance. Lung abdomen clips r ight breast. Costochondral calcifications. No consolidation or pleural effusion clearly seen. Some bl unting of the posterior costophrenic angles are unchanged from 05/07/2017 likely relating to pleural p arenchymal scarring. IMPRESSION: COPD. There are chronic changes without acute process identified.
[2017-12-07 14:49] LABS: Creatine Kinase MB 1.3 ng/mL (0.0-2.4); Troponin I <0.012 ng/mL (0.000-0.034)
[2017-12-07 15:23] VITALS: BP 157/74; PULSE 87; TEMP 98
== END 2017-12-07 15:23 | disposition home or self-care (01) ==
LOC: EC 13:25
DX: R00.2 Palpitations (principal); I10 Essential (primary) hypertension; F32.9 Major depressive disorder, single episode, unspecified; Z85.3 Personal history of malignant neoplasm of breast; Z88.0 Allergy status to penicillin; Z88.1 Allergy status to other antibiotic agents; Z79.02 Long term (current) use of antithrombotics/antiplatelets; Z79.899 Other long term (current) drug therapy
CPT/HCPCS: 99285; 96374; 36415; 93005; 84439; 80053; 82550; 82553; 83735; 84443; 84484; 85025; 85610; 85730; 71046; J2060